=== PATIENT | female | born 1955 | race Caucasian/White ===

== ENCOUNTER 2024-06-02 09:04 | Emergency (ER) | payer MEDICARE, BC ==
[~2024-06-02] VITALS: Ht 154.9 cm; Wt 77.5 kg
--- NOTE | 2024-06-02 09:15 | Physician Documentation ---
History of Present Illness ~ Chief Complaint: Bite-animal Stated Complaint: CAT BITE Time Seen by MD: 09:15 Primary Medical Doctor: NONE HPI 68-year-old female presents to the emergency department reporting that she went to feed a stray cat last night and the cat bit her. She reports that the cat was non attacking her, but it seemed to be so hungry that it inadvertently but h er fingers. She denies unusual behavior, foaming of the mouth, any concerns that the cat might be ill. The cat lives in her neighborhood, and she feels that she can keep an eye on it. She is not up-to-date on her tetanus. She does note a history of hypertension for which she previously took lisinopril, but has been out for quite some. Tetanus within 5 years?: No Medication Reconciliation Allergies: Coded Allergies: amoxicillin (Unverified Allergy, Unknown, 06/02/24) Review of Systems ROS As stated above in the HPI, otherwise all systems are reviewed and negative. Physical Exam Vital Signs: Temperature: 97.9, Source: Temporal, Heart Rate: 99, Respiratory Rate: 18, BP: 200/97, Pulse Oximetry: 98, Weight: 77.450 Oxygen Flow Rate: 0 Physical Exam General: Alert, no apparent distress. Neck: Full range of motion. Respiratory: Lungs clear, no respiratory distress. Chest: No accessory muscle use. Cardiovascular: Regular rate and rhythm, no murmurs. Gastrointestinal: Soft, nontender, nondistended. Bowels sounds present. Extremities: Normal range of motion, no deformity. Neurologic: Oriented x4. Psychiatric: Normal mood and affect. Skin: Normal color, warm and dry. No edema, no ecchymosis. Puncture wounds palm side fingers 2 and 3 right hand. Full ROM of fingers present. Progress Results/Orders Results/Orders Orders - SNEHA CONWAY NP Dressing Orders (06/02/24 09:28) Wound Care Orders (06/02/24 09:28) Completed Orders - SNEHA CONWAY NP Tetanus/Pertuss/Diph Acell/Pf (Boostrix (06/02/24 09:30) Vital Signs 06/02/24 09:07 Temp 97.9 Pulse 99 Resp 18 B/P (MAP) 200/97 Pulse Ox 98 O2 Flow Rate 0 Departure Time of Disposition: 09:33 Disposition: 01 HOME / SELF CARE / HOMELESS Impression: Primary Impression: Cat bite Qualified Codes: W55.01XA - Bitten by cat, initial encounter Condition: Stable Discharge Instructions: Animal Bite, Adult, Hypertension, Adult Additional Instructions: You were very high risk of infection due to the cat bites on two fingers of her right hand. Take the antibiotics as prescribed for three days. Continue the course if there are any signs of infection at that time. You were given a tetanus injection today in the emergency department. Please return if worse at any time, particularly with difficulty completely opening and closing the this is of the right hand. You were offered rabies prophylaxis, but chose not to take it. If you see the cat around the neighborhood and it is behaving abnormally or eratically, return for rabies treatment. Your BP is high and you need to be back on your lisinopril. This was sent for you and you should see your primary care within the next few weeks for Bp rec heck and further prescription for lisinopril. Referrals: NO PRIMARY CARE PROVIDER (PCP) Prescriptions Lisinopril (Lisinopril) 20 Mg Tablet 1 TAB PO DAILY for 30 Days, #30 TAB Prov: SNEHA CONWAY NP 06/02/24 Clindamycin HCL* (Clindamycin HCL*) 300 Mg Capsule 1 CAP PO Q8H for 7 Days, #21 CAP 0 Refills Prov: SNEHA CONWAY NP 06/02/24 Doxycycline Hyclate (Doxycycline Hyclate) 100 Mg Capsule 1 CAP PO Q12H for 7 Days, #14 CAP Prov: SNEHA CONWAY NP 06/02/24 Education Educated: Patient Educated regarding: diagnosis, treatment, prognosis Signature Scribe Signature: no scribe Attestation: The note accurately reflects work and decisions made by me.Sneha Betts NP 06/02/24 09:43 SNEHA CONWAY NP Jun 02, 2024 09:15
[2024-06-02] MEDS ORDERED: DOXY-224 PO (09:35)
[2024-06-02] MEDS ORDERED: CLIN-97 PO (09:35)
[2024-06-02] MEDS ORDERED: LISI20TA28 PO (09:40)
[2024-06-02] MEDS: TETanus/Pertussis (Acell)/Diphther VAC/PF (Tdap-Adult) 0.5ml syringe IMVAC ONE (09:42)
[2024-06-02 09:49] VITALS: BP 171/85; PULSE 88; RESP 16; TEMP 97.9; O2SAT 95
== END 2024-06-02 09:51 | disposition home or self-care (01) ==
LOC: ER 09:05
DX: S61.230A Puncture wound without foreign body of right index finger without damage to nail, initial encounter (principal); S61.232A Puncture wound without foreign body of right middle finger without damage to nail, initial encounter; I10 Essential (primary) hypertension; Z88.1 Allergy status to other antibiotic agents; W55.01XA Bitten by cat, initial encounter; Y93.89 Activity, other specified; Y92.89 Other specified places as the place of occurrence of the external cause; Y99.8 Other external cause status
CPT/HCPCS: 90715; 99283; A6402; G0008; 90471; A6449